=== PATIENT | male | born 1960 | race Caucasian/White ===

== ENCOUNTER → 2018-08-20 | Outpatient (CLI) | payer BC ==
[~2018-08-20] MED LIST: ASPIRIN 81M81 MG/TA2 PO; LIPITOR20 MG PO; PRINZIDE 25 MG-1 TAB PO
== END ==
LOC: COL.RAD 11:01
DX: M48.07 Spinal stenosis, lumbosacral region (principal); M43.16 Spondylolisthesis, lumbar region; M96.1 Postlaminectomy syndrome, not elsewhere classified; M12.88 Other specific arthropathies, not elsewhere classified, other specified site; M54.10 Radiculopathy, site unspecified
CPT/HCPCS: A9585

== ENCOUNTER → 2021-07-21 | Outpatient (CLI) | payer BC | LOC: COL.RAD 09:07 | DX: K76.0 Fatty (change of) liver, not elsewhere classified (principal) ==

== ENCOUNTER 2021-11-02 11:15 | Outpatient (RCR) | payer BC | END 2021-11-04 | disposition still patient (30) | LOC: MKS.ESL.OT | DX: Z86.73 Personal history of transient ischemic attack (TIA), and cerebral infarction without residual deficits (principal) ==

== ENCOUNTER 2021-11-08 12:57 | Outpatient (RCR) | payer BC | END 2021-11-08 13:53 | disposition home or self-care (01) | LOC: MKS.ESL.OT 12:57 | DX: I69.334 Monoplegia of upper limb following cerebral infarction affecting left non-dominant side (principal) ==

== ENCOUNTER → 2021-11-26 | Outpatient (CLI) | payer BC | LOC: COL.RAD 12:35 | DX: G31.9 Degenerative disease of nervous system, unspecified (principal); G93.89 Other specified disorders of brain; I67.1 Cerebral aneurysm, nonruptured; I63.89 Other cerebral infarction; G47.30 Sleep apnea, unspecified; M54.12 Radiculopathy, cervical region | CPT/HCPCS: Q9967 ==

== ENCOUNTER 2022-01-17 08:30 | Outpatient (RCR) | payer BC | END 2022-02-03 | disposition home or self-care (01) | LOC: MKS.ESL.PT | DX: M75.82 Other shoulder lesions, left shoulder (principal) ==

== ENCOUNTER 2022-02-09 09:00 | Outpatient (RCR) | payer BC | END 2022-02-09 16:44 | disposition home or self-care (01) | LOC: MKS.ESL.PT 09:00 | DX: M75.82 Other shoulder lesions, left shoulder (principal); M77.8 Other enthesopathies, not elsewhere classified ==